=== PATIENT | female | born 1970 | race Caucasian/White ===

== ENCOUNTER 2022-01-08 09:54 | Emergency (ER) | payer MEDICAID ==
[~2022-01-08] VITALS: Ht 165.1 cm; Wt 80.0 kg
[2022-01-08 10:42] LABS: BASOPHILS % 0.5 % (0.0-2.0); EOSINOPHILS % 0.5 % (0.0-5.0); HEMATOCRIT. 38.5 % (36.0-48.0); HEMOGLOBIN. 13.1 g/dL (12.0-16.0); LYMPHOCYTES % 18.4 % (20.0-50.0); MEAN CORPUSCULAR HEMOGLOBIN 28.8 pg (28.0-32.0); MEAN CORPUSCULAR VOLUME 84.8 fL (81.0-99.0); MEAN PLATELET VOLUME 8.8 fl (7.4-10.4); MONOCYTES % 4.7 % (2.0-8.0); NEUTROPHILS % 75.9 % (40.0-76.0); PLATELET 268 x1000/uL (130-400); RED BLOOD CELL COUNT 4.54 mill/uL (4.2-5.4); RED CELL DISTRIBUTION WIDTH 14.2 % (11.6-14.6)
[2022-01-08 11:18] LABS: CHLORIDE 110 mEq/L (98-107)
[2022-01-08] MEDS ORDERED: ACETAMINOPHEN 325MG TABLET PO ONE (12:15)
[2022-01-08] MEDS ORDERED: TOPUD PO (12:34)
[2022-01-08 12:59] VITALS: BP 100/65
== END 2022-01-08 13:07 | disposition home or self-care (01) ==
LOC: ER 09:54
DX: R07.89 Other chest pain (principal); E11.9 Type 2 diabetes mellitus without complications; Z86.73 Personal history of transient ischemic attack (TIA), and cerebral infarction without residual deficits; V43.52XA Car driver injured in collision with other type car in traffic accident, initial encounter; Y93.89 Activity, other specified; Y92.488 Other paved roadways as the place of occurrence of the external cause
CPT/HCPCS: 36415; 71045; 80053; 83880; 84484; 85025; 93005; 99285